=== PATIENT | male | born 1985 | race Caucasian/White ===

== ENCOUNTER 2025-03-20 03:07 | Emergency (ER) | payer OTHER ==
[~2025-03-20] VITALS: Ht 167.6 cm; Wt 79.0 kg
[2025-03-20 03:24] VITALS: O2SAT 94
[2025-03-20 05:11] VITALS: TEMP 36.9
[2025-03-20 05:14] VITALS: TEMP 98.5
[2025-03-20] MEDS: ACETAMINOPHEN 500MG TABLET PO ONE (05:14)
[2025-03-20 05:50] VITALS: BP 126/74; PULSE 106; RESP 15; O2SAT 98
== END 2025-03-20 06:09 | disposition home or self-care (01) ==
LOC: ER 03:07
DX: S09.8XXA Other specified injuries of head, initial encounter (principal); W19.XXXA Unspecified fall, initial encounter; Y93.89 Activity, other specified; Y92.89 Other specified places as the place of occurrence of the external cause; Y99.8 Other external cause status
CPT/HCPCS: 70450; 99284; Z7610; A4606